=== PATIENT | male | born 1980 | race African-American/Black ===

== ENCOUNTER 2021-10-16 18:12 | Inpatient (IN) | payer MEDICAID ==
[~2021-10-16] VITALS: Ht 175.3 cm; Wt 70.3 kg
--- NOTE | 2021-10-16 19:03 | NUR ---
PT [id number] FR THE STREETS C/O BODY ACHE, FEVER N/V/D X 2 DAYS. AFEBRILE POWER LINE INSTALLER AND REPAIRER. PT IS AAOX4, NOT IN RESPIRATORY DISTRESS, V/S STABLE, KEPT RESTED AND COMFORTABLE. WILL CONTINUE TO MONITOR.
[2021-10-16] MEDS ORDERED: ONDANSETRON HCL/PF 4 MG/2 ML VIAL IVP ONE (19:30)
[2021-10-16] MEDS ORDERED: IV NS 0.9% 1,000 ML BAG IV ONE (19:30)
[2021-10-16] MEDS ORDERED: ACETAMINOPHEN ES 500 MG TABLET PO ONE (19:30)
--- NOTE | 2021-10-16 19:30 | NUR ---
IV LINE ESTABLISHED AT LAC 20G, BLOOD DRAWN AND SENT TO LAB
[2021-10-16] MEDS ORDERED: ONDANSETRON HCL/PF 4 MG/2 ML VIAL ONE (19:34)
[2021-10-16] MEDS ORDERED: ACETAMINOPHEN ES 500 MG TABLET ONE (19:35)
--- NOTE | 2021-10-16 19:50 | NUR ---
INFLUENZA, COVID ANTIGEN AND COVID PCR SWAB COLLECTED, SENT TO LAB
--- NOTE | 2021-10-16 19:54 | NUR ---
RAD AT BEDSIDE
[2021-10-16 20:17] LABS: BASOPHILS # (AUTO) 0.1 K/uL (0.0-0.2); BASOPHILS % (AUTO) 1.2 % (0.0-2.0); EOSINOPHILS % (AUTO) 3.3 % (0.0-6.0); HEMATOCRIT 32 % (39-51); LYMPHOCYTES # (AUTO) 2.3 K/uL (0.8-4.8); LYMPHOCYTES % (AUTO) 37.5 % (20.0-44.0); MEAN CORPUSCULAR HGB CONC 32 g/dl (31.0-36.0); MEAN CORPUSCULAR VOLUME 85 fL (80-96); MONOCYTES # (AUTO) 0.8 K/uL (0.1-1.30); MONOCYTES % (AUTO) 13.5 % (2.0-12.0); NEUTROPHILS # (AUTO) 2.7 K/uL (1.8-8.9); NEUTROPHILS % (AUTO) 44.5 % (43.0-81.0); PLATELET COUNT (AUTO) 477 K/uL (150-450); RED BLOOD CELL COUNT(AUTO) 3.75 MIL/uL (4.5-6.0)
[2021-10-16 20:18] LABS: ALBUMIN 2.5 g/dL (3.4-5.0); BILIRUBIN,DIRECT 0.1 mg/dL (0.0-0.2); BILIRUBIN,TOTAL 0.4 mg/dL (0.2-1.0); CALCIUM, SERUM 8.9 mg/dL (8.5-10.1); CREATININE 0.9 mg/dL (0.6-1.3); POTASSIUM 3.9 mmol/L (3.5-5.1); TOTAL PROTEIN, SERUM 10.3 g/dL (6.4-8.2)
--- NOTE | 2021-10-16 20:51 | NUR ---
PATIENT TAKEN TO RADIOLOGY FOR CT OF ABD PELVIS
[2021-10-16] MEDS ORDERED: PIPERACILLIN /TAZOBACTAM 3.375 G in IV D5W 50 ML IV ONE (22:30)
[2021-10-16] MEDS ORDERED: PIPERACILLIN /TAZOBACTAM 3.375 G VIAL IV ONE (22:34)
--- NOTE | 2021-10-16 22:35 | NUR ---
CEMENT CONVEYOR OPERATOR EQUIPMENT VALIDATION SPECIALIST PAGED.
[2021-10-16] MEDS ORDERED: LIDOCAINE VISCOUS 2% UD 15 ML UDC ONE (22:49)
--- NOTE | 2021-10-16 22:59 | NUR ---
PATIENT REFUSED NG TUBE INSERTION. DR HERNANDEZ WAS NOTIFIED, HE ACKNOWLEDGED AND STATED IT'S OK.
--- NOTE | 2021-10-16 23:24 | NUR ---
DR. ZAYAS ON THE PHONE WITH YADIRA WILSON
--- NOTE | 2021-10-16 23:26 | NUR ---
CALLED NURSING SUP FOR ROOM
--- NOTE | 2021-10-16 23:27 | NUR ---
CALLED [facility], PAGED GT LIVINGSTON
[2021-10-16] MEDS ORDERED: VANCOMYCIN 1 GM in IV D5W 250 ML IV ONE (23:30)
--- NOTE | 2021-10-16 23:33 | NUR ---
MRSA SWAB DONE, SENT TO LAB
--- NOTE | 2021-10-16 23:33 | NUR ---
PATIENT'S BELONGINGS LIST DONE.
[2021-10-17] MEDS ORDERED: VANCOMYCIN 1 GM VIAL ONE (00:09)
--- NOTE | 2021-10-17 00:22 | NUR ---
CASSY OF LAB NOTIFIED OF ORDER FOR BLOOD CULTURE.
--- NOTE | 2021-10-17 01:30 | NUR ---
REPORT GIVEN TO REJI FERRARO FOR CONTINUATION OF CARE
[2021-10-17] MEDS ORDERED: Z GUARD REMEDY 2 OZ OINT TP PRN (02:30)
[2021-10-17] MEDS ORDERED: ACETAMINOPHEN 325 MG TABLET PO PRN (02:30)
[2021-10-17] MEDS ORDERED: ONDANSETRON HCL/PF 4 MG/2 ML VIAL IVP PRN (02:30)
--- NOTE | 2021-10-17 02:30 | NUR ---
PT TO RADIOLOGY FOR CT
[2021-10-17] MEDS ORDERED: IOHEXOL-300 100 ML VIAL IV ONE (02:32)
[2021-10-17] MEDS ORDERED: IV NS 0.9% 250 ML IV ONE (02:32)
--- NOTE | 2021-10-17 02:51 | NUR ---
PT TRANSFERRED TO TELE 102 VIA ACLS PROTOCOL.
[2021-10-17] MEDS: ENOXAPARIN SODIUM 40 MG/0.4 ML DISP.SYRIN SQ SCH ×3 (03:00→21:00)
--- NOTE | 2021-10-17 03:00 | NUR ---
MINING TECHNICIANAUXILIARY OPERATOR NOTE PT RECEIVED AWAKE, ALERT/ORIENTED X 3, PT ABLE TO MAKE NEEDS KNOWN. PT STABLE ON RA, NO S/S OF DISTRESS OR SOB NOTED, BREATHING EVEN AND UNLABORED. VITAL SIGNS WNL. IV ACCESS ON LEFT AC #20G INTACT AND FLUSHING WELL. PT ON EXTERNAL CLINICAL EDUCATION ASSISTANT READING SINUS RHYTHM, HR: 78. PATIENT'S SKIN INTACT OTHER THAN MULTIPLE OLD SCARS ON CHEST, ABDOMEN, BACK AND ARMS. PT POOR HISTORIAN, DENIES MEDICAL HISTORY OTHER THAN HIV POSITIVE AND LUNG SURGERY BUT UNABLE TO EXPLAIN WHAT TYPE OR REASON FOR IT. PT REFUSES FLU AND COVID VACCINE. PT STATES HE IS NOT ALLERGIC TO MEDICATION AND DOES NOT TAKE ANY MEDICATION. PT IS HOMELESS. PATIENT BELONGINGS CHARTED. DEMONSTRATED HOW TO USE CALL LIGHT AND REMOTE, EXPLAINED TO PATIENT TO CALL BEFORE GETTING OUT OF BED TO USE BATHROOM. EXPLAINED TO PATIENT THAT HE IS NPO, VERBALIZED UNDERSTANDING. PER ER NURSE, PT REFUSED NG TUBE PLACEMENT, MD AWARE. SAFETY MEASURES IN PLACE: CALL LIGHT WITHIN REACH, SIDE RAILS UP X 2, BED LOCKED IN LOW POSITION, BED ALARM ON. WILL CONTINUE TO MONITOR PATIENT
--- NOTE | 2021-10-17 03:30 | NUR ---
GANG BOSS NOTE FAXED ORDER FOR FLUCONAZOLE 100 MG IN NS, CEFEPIME 2 GM, AND IV D5/0.45% NS WITH POTASSIUM CHLORIDE TO NURSING NURSERY TECHNICIAN
[2021-10-17] MEDS: AZITHROMYCIN 250 MG TABLET PO SCH ×2 (03:31→20:42)
[2021-10-17] MEDS: MORPHINE SULFATE INJ 2 MG/ML DISP.SYRIN IV PRN ×4 (03:32→20:46)
--- NOTE | 2021-10-17 03:44 | NUR ---
RETORT OR CONDENSER PRESS OPERATOR NOTE HELD LOVENOX [address] GT LIVINGSTON FOR POSSIBLE US GUIDED THORACENTESIS
[2021-10-17 04:00] VITALS: BP 120/83
[2021-10-17 04:06] LABS: THYROID STIMULATING HORMONE 1.048 uIU/mL (0.358-3.74)
[2021-10-17] MEDS ORDERED: CEFEPIME 2 GM in IV D5W 100 ML IV SCH (05:00)
--- NOTE | 2021-10-17 05:13 | NUR ---
REGIONAL CRA NOTE MEDICATIONS STILL NOT AVAILABLE. CALLED NURSING EMBEDDED SOFTWARE DEVELOPER TO FOLLOW UP ON MEDICATION ORDERS I FAXED, STATED SHE WILL COME TO THE UNIT SOON
[2021-10-17] MEDS ORDERED: CEFEPIME 1 GM VIAL ONE (05:37)
[2021-10-17] MEDS ORDERED: IV PREMIX D5 1/2NS + KCL 1,000 ML IV ONE (05:38)
[2021-10-17] MEDS: Potassium Chloride 20 MEQ in IV D5/0.45 NACL 1,000 ML IV PRN (06:15)
--- NOTE | 2021-10-17 06:27 | NUR ---
FOREIGN EXCHANGE POSITION CLERK NOTE PER NURSING NUCLEAR OPERATOR, DIFLUCAN 100 MG IV NOT AVAILABLE, THEREFORE COULD NOT BE GIVEN. WILL CALL PHARMACY WHEN OPEN
--- NOTE | 2021-10-17 07:26 | NUR ---
FIXED INCOME DIRECTOR CLOSING NOTE PATIENT AWAKE IN BED, ALERT/ORIENTED X 3, PT ABLE TO MAKE NEEDS KNOWN. PT STABLE ON RA, NO S/S OF DISTRESS OR SOB NOTED, BREATHING EVEN AND UNLABORED. PATIENT ON EXTERNAL RETAIL SHIFT LEADER READING SINUS RHYTHM. LEFT AC #20G IV ACCESS RUNNING D51/2 NS WITH POTASSIUM CHLORIDE 20 MEQ @ 100 ML/HR. CALLED PHARMACY REGARDING DIFLUCAN IV AND THEY STATED THEY WOULD BRING IT UP, ENDORSED TO DAY SHIFT NURSE. MEDICATIONS GIVEN ORDERED, PT NEEDS MET THROUGHOUT SHIFT. SAFETY MEASURES IN PLACE: CALL LIGHT WITHIN REACH, SIDE RAILS UP X 2, BED LOCKED IN LOW POSITION. ENDORSED TO DAY SHIFT NURSE FOR CONTINUITY OF CARE
[2021-10-17 08:00] VITALS: BP 130/74
--- NOTE | 2021-10-17 08:00 | NUR ---
REPLENISHMENT MERCHANDISING ASSOCIATE OPENING NOTE PATIENT IS RESTING IN BED BUT DOES RESPOND TO NAME A/OX3. PATIENT IS ON ROOM AIR WITH O2 SAT IN THE HIGH 90S. HAS INTACT IV ACCES IN THE LT AC 20G RUNNING D2 1/2 NS. PATIENT IS NPO ICE CHIPS OKAY. PATIENT DOES NOT COMPLAINT OF PAIN OR SOB AT THIS TIME. SAFETY PROTOCOL IN PLACE BED IN THE LOWEST POSITION AND LOCKED, CALL LIGHT WITHIN REACH.
[2021-10-17] MEDS: VANCOMYCIN 1 GM in IV D5W 250ml IV SCH ×2 (08:14→16:06)
[2021-10-17] MEDS: PANTOPRAZOLE 40 MG VIAL IV SCH (08:14)
--- NOTE | 2021-10-17 10:15 | NUR ---
AT 10:15 PER RN, JLUIS ROSS REFUSED THE PROCEDURE AND TO SIGN THE CONSENT. RN WILL INFORM THE ORDERING MD.
--- NOTE | 2021-10-17 10:18 | NUR ---
REGIONAL TRAINING MANAGER NOTE PATIENT IS REFUSING U/S THORACENTESIS, U/S AWARE. WAS INFORMED THAT PATIENT CAN CHANGE HIS MIND AND GET PROCEDURE DONE TOMORROW IF HE WISHES, WILL NOTIFY PATIENT AND PROVIDER.
[2021-10-17 12:00] VITALS: BP 119/75
[2021-10-17] MEDS: CEFEPIME 2 GM in IV D5W 100 ML IV SCH ×2 (12:37→20:43)
[2021-10-17 16:00] VITALS: BP 123/75
--- NOTE | 2021-10-17 18:33 | NUR ---
GLASS BENDER CLOSING NOTE PATIENT AWAKE IN BED, ALERT/ORIENTED X 4, PT ABLE TO MAKE NEEDS KNOWN. NO S/S OF DISTRESS OR SOB NOTED, BREATHING EVEN AND UNLABORED. PATIENT ON EXTERNAL SUBSTANCE ABUSE NURSE READING SINUS RHYTHM. RIGHT AC #20G IV INTACT. PATIENT REFUSED THORACENTESIS TODAY. PATIENT WAS IN A NPO DIET BUT SWITCH TO A REGULAR DIET. PATIENT IS AWARE WE NEED A STOOL SAMPLE FOR CX AND SPECIMEN CUP IS PLACED IN BATHROOM FOR COLLECTION. MEDICATIONS GIVEN ORDERED, PT NEEDS MET THROUGHOUT SHIFT. SAFETY MEASURES IN PLACE: CALL LIGHT WITHIN REACH, SIDE RAILS UP X 2, BED LOCKED IN LOW POSITION. ENDORSED TO TRIAL EXAMINER NURSE FOR ERIC
--- NOTE | 2021-10-17 19:40 | NUR ---
TELE OPENING NOTE RECEIVED PATIENT RESTING IN BED, ALERT/ORIENTED X 4, PT ABLE TO MAKE NEEDS KNOWN. NO S/S OF DISTRESS OR SOB NOTED, BREATHING EVEN AND UNLABORED. PATIENT ON EXTERNAL SHEET METAL WORKER READING SINUS RHYTHM. RIGHT AC #20G. IV INTACT. PATIENT ON ROOM AIR, SATURATING 99%. ALL SAFETY PRECAUTIONS TAKEN, BED IN LOW POSITION, CALL LIGHT WITHIN REACH, SIDE RAILS UP X2.
[2021-10-17 20:00] VITALS: BP 115/63
[2021-10-17] MEDS: FLUCONAZOLE IN NS 100 MG in PREMIX 1 EA IV SCH (21:00)
[2021-10-18] MEDS: VANCOMYCIN 1 GM in IV D5W 250ml IV SCH ×3 (01:05→15:22)
[2021-10-18] MEDS: Potassium Chloride 20 MEQ in IV D5/0.45 NACL 1,000 ML IV PRN (01:06)
[2021-10-18 01:46] VITALS: BP 115/63
[2021-10-18] MEDS: FLUCONAZOLE IN NS 100 MG in PREMIX 1 EA IV SCH (02:29)
[2021-10-18] MEDS: MORPHINE SULFATE INJ 2 MG/ML DISP.SYRIN IV PRN ×4 (02:29→18:47)
[2021-10-18 04:00] VITALS: BP 120/79
[2021-10-18 06:06] LABS: *BASOS 0 % (Not Estab.); *EOS 5 % (Not Estab.); *EOS, ABSOLUTE 0.3 x10E3/uL (0.0-0.4); *HGB 9.6 g/dL (13.0-17.7); *IMMATURE GRANULOCYTES 0 % (Not Estab.); *LYMPHOCYTES 49 % (Not Estab.); *LYMPHS, ABSOLUTE 2.3 x10E3/uL (0.7-3.1); *MCH 27.4 pg (26.6-33.0); *MCV 86 fL (79-97); *MONOCYTES 9 % (Not Estab.); *MONOS, ABSOLUTE 0.4 x10E3/uL (0.1-0.9); *NEUTROPHILS 37 % (Not Estab.); *NEUTROPHILS, ABSOLUTE 1.8 x10E3/uL (1.4-7.0); *PLT 471 x10E3/uL (150-450); *RDW 19.3 % (11.6-15.4)
[2021-10-18] MEDS: CEFEPIME 2 GM in IV D5W 100 ML IV SCH ×3 (06:34→21:22)
[2021-10-18 07:23] LABS: BASOPHILS # (AUTO) 0.1 K/uL (0.0-0.2); BASOPHILS % (AUTO) 1.5 % (0.0-2.0); EOSINOPHILS % (AUTO) 9.2 % (0.0-6.0); HEMATOCRIT 28 % (39-51); HEMOGLOBIN 9.3 g/dL (13.5-17.5); LYMPHOCYTES # (AUTO) 1.7 K/uL (0.8-4.8); LYMPHOCYTES % (AUTO) 44.7 % (20.0-44.0); MEAN CORPUSCULAR HGB CONC 33 g/dl (31.0-36.0); MEAN CORPUSCULAR VOLUME 84 fL (80-96); MONOCYTES # (AUTO) 0.4 K/uL (0.1-1.30); MONOCYTES % (AUTO) 10.8 % (2.0-12.0); NEUTROPHILS # (AUTO) 1.3 K/uL (1.8-8.9); NEUTROPHILS % (AUTO) 33.8 % (43.0-81.0); PLATELET COUNT (AUTO) 360 K/uL (150-450); RED BLOOD CELL COUNT(AUTO) 3.34 MIL/uL (4.5-6.0); WHITE BLOOD COUNT (AUTO) 3.8 K/uL (4.3-11.0)
--- NOTE | 2021-10-18 07:38 | NUR ---
PULP OPERATOR CLOSING NOTE PATIENT IS RESTING IN BED BED, ALERT/ORIENTED X 4, NO S/S OF DISTRESS OR SOB NOTED, BREATHING EVEN AND UNLABORED. PATIENT ON ROOM AIR, SATURATING 99%. RIGHT AC IV ACCESS INTACT AND PATENT. URINE SPECIMEN COLLECTED AND PLACED IN FRIDGE, DIRECTIONS ENDORSED TO ONCOMING MORNING NURSE. PATIENT REFUSED LOVENOX, BECAUSE "IT HURTS TOO MUCH." MEDICATIONS GIVEN ORDERED, PT NEEDS MET THROUGHOUT SHIFT. SAFETY MEASURES IN PLACE: CALL LIGHT WITHIN REACH, SIDE RAILS UP X 2, BED LOCKED IN LOW POSITION. PLAN OF CARE ENDORSED TO MORNING SHIFT
[2021-10-18 07:46] LABS: ALBUMIN 2.1 g/dL (3.4-5.0); BILIRUBIN,TOTAL 0.5 mg/dL (0.2-1.0); CALCIUM, SERUM 7.8 mg/dL (8.5-10.1); CREATININE 0.7 mg/dL (0.6-1.3); MAGNESIUM 1.3 mg/dL (1.8-2.4); POTASSIUM 3.4 mmol/L (3.5-5.1); TOTAL PROTEIN, SERUM 8.7 g/dL (6.4-8.2)
--- NOTE | 2021-10-18 07:51 | NUR ---
RN OPENING NOTE PATIENT RECEIVED IN BED, RESTING. PATIENT ON ROOM AIR WITH NO SIGNS OF LABORED BREATHING AT THIS TIME. RIGHT AC 20G IV IN PLACE, PATENT WITH NO SIGNS OF LABORED BREATHING AT THIS TIME. NO SIGNS OF DISTRESS NOTED AT THIS TIME. BED LOCKED AND IN LOWEST POSITION, CALL LIGHT WITHIN REACH, 3 SIDE RAILS UP. WILL CONTINUE TO MONITOR.
[2021-10-18 08:00] VITALS: BP 122/79
[2021-10-18] MEDS: PANTOPRAZOLE 40 MG VIAL IV SCH (08:18)
[2021-10-18 09:07] LABS: *% CD 4 POS. LYMPH 7.3 % (30.8-58.5); *% CD 8 POS. LYMPH 72.6 % (12.0-35.5); *ABSOLUTE CD 4 HELPER 168 /uL (359-1519); *ABSOLUTE CD 8 SUPPRESSOR 1670 /uL (109-897)
[2021-10-18] MEDS: Magnesium 1GM/D5W 100ML PREMIX 100 ML IV SCH ×4 (09:58→13:34)
[2021-10-18 10:12] LABS: EOSINOPHILS % (MANUAL) 6 % (0-4); LYMPHOCYTES % (MANUAL) 47 % (16-48); MONOCYTES % (MANUAL) 10 % (0-11.0); NEUTROPHILS % (MANUAL) 37 (42-76)
[2021-10-18] MEDS ORDERED: POTASSIUM CHLORIDE 20 MEQ TAB.PRT.SR PO ONE (11:30)
[2021-10-18 12:00] VITALS: BP 117/80
[2021-10-18 15:52] LABS: BILIRUBIN,URINE NEGATIVE (NEGATIVE); COLOR,URINE YELLOW (YELLOW); LEUKOCYTE ESTERASE ,URINE NEGATIVE (NEGATIVE); NITRITE, URINE NEGATIVE (NEGATIVE); PROTEIN,URINE NEGATIVE (NEGATIVE); UGLUCOSE NEGATIVE (NEGATIVE); UROBILINOGEN,URINE 0.2 EU/dL (0.2)
[2021-10-18 16:00] VITALS: BP 125/69
--- NOTE | 2021-10-18 18:52 | NUR ---
RN CLOSING NOTE PATIENT REMAINS IN BED, AWAKE, A&OX4. PATIENT ON ROOM AIR WITH NO SIGNS OF LABORED BREATHING AT THIS TIME. RIGHT AC 20G IV IN PLACE, PATENT WITH NO SIGNS OF INFILTRATION AT THIS TIME. ALL NEEDS ATTENDED DURING SHIFT. NO SIGNS OF DISTRESS NOTED AT THIS TIME. BED LOCKED AND IN LOWEST POSITION, CALL LIGHT WITHIN REACH, 2 SIDE RAILS UP. WILL ENDORSE TO BOATSWAINS MATE NURSE.
[2021-10-18 20:00] VITALS: BP 123/81
--- NOTE | 2021-10-18 20:00 | NUR ---
SANDWICH WRAPPER NOTE PT IN BED AWAKE. NO DISTRESS OR DISCOMFORT NOTED. DENIES PAIN AT THIS TIME. IVF D5 1/2 NS WITH 20 MEQ 100 ML/HR , NO S/S OF INFILTRATION NOTED. ON TELE SR. VSS. CONTINUE TO MONITOR HIM.
[2021-10-18] MEDS ORDERED: METRONIDAZOLE 500MG/ NS 100ML 500 MG in PREMIX 1 EA IV SCH (21:00)
[2021-10-18] MEDS: ENOXAPARIN SODIUM 40 MG/0.4 ML DISP.SYRIN SQ SCH (21:00)
[2021-10-18] MEDS: METRONIDAZOLE 500 MG TABLET PO SCH (21:22)
[2021-10-19] VITALS: BP 117/75
[2021-10-19] MEDS: VANCOMYCIN 1 GM in IV D5W 250ml IV SCH ×3 (00:19→16:19)
[2021-10-19] MEDS: MORPHINE SULFATE INJ 2 MG/ML DISP.SYRIN IV PRN ×4 (00:20→18:18)
--- NOTE | 2021-10-19 02:20 | NUR ---
CONSULTING ANALYST NOTE PT REMOVED HIS TELE MONITOR LEADS. ALSO PULLED THE IV LINE. STATES ' ACCIDENTLY CAME OUT." NO BLEEDING NOTED. WILL REINSERT THE NEW IV LINE.
[2021-10-19 04:00] VITALS: BP 120/76
[2021-10-19] MEDS: CEFEPIME 2 GM in IV D5W 100 ML IV SCH ×3 (04:22→21:06)
[2021-10-19] MEDS: METRONIDAZOLE 500 MG TABLET PO SCH ×3 (04:23→21:06)
[2021-10-19 06:19] LABS: EOSINOPHILS % (AUTO) 8.6 % (0.0-6.0); HEMATOCRIT 28 % (39-51); HEMOGLOBIN 9.2 g/dL (13.5-17.5); LYMPHOCYTES # (AUTO) 1.8 K/uL (0.8-4.8); LYMPHOCYTES % (AUTO) 46.6 % (20.0-44.0); MEAN CORPUSCULAR HGB CONC 33 g/dl (31.0-36.0); MEAN CORPUSCULAR VOLUME 83 fL (80-96); MONOCYTES # (AUTO) 0.5 K/uL (0.1-1.30); MONOCYTES % (AUTO) 13.4 % (2.0-12.0); NEUTROPHILS # (AUTO) 1.2 K/uL (1.8-8.9); NEUTROPHILS % (AUTO) 30.4 % (43.0-81.0); PLATELET COUNT (AUTO) 350 K/uL (150-450); RED BLOOD CELL COUNT(AUTO) 3.39 MIL/uL (4.5-6.0); WHITE BLOOD COUNT (AUTO) 3.9 K/uL (4.3-11.0)
[2021-10-19 06:55] LABS: CALCIUM, SERUM 8.1 mg/dL (8.5-10.1); CREATININE 0.7 mg/dL (0.6-1.3); MAGNESIUM 1.8 mg/dL (1.8-2.4); PHOSPHORUS 4.1 mg/dL (2.5-4.9)
--- NOTE | 2021-10-19 07:20 | NUR ---
RN NOTE REPORT REC'D AT BEDSIDE. PT IS AWAKE, ALERT, OX4. NO SOB. ON RA. DENIES ANY NEED AT THIS TIME. PT IS AMBULATORY WTH STEADY GAIT. IVF INFUSING TO LFA WITHOUT DIFFICULTY. SAFETY MEASURES OBSERVED. WILL CONTINUE TO MONITOR.
--- NOTE | 2021-10-19 07:49 | NUR ---
RN NOTE PER CORE WORKER RN, PATIENT REFUSED THORACENTESIS. PATIENT REFUSING TELE MONITOR MD MADE AWARE.
--- NOTE | 2021-10-19 07:52 | NUR ---
RN NOTE PER GUILHERME ARREOLA NOTE. OK TO DOWNGRADE TO MED SURGERY. ORDERS NOTED AND CARRIED OUT.
[2021-10-19 08:00] VITALS: BP 117/70
[2021-10-19] MEDS: SULFAMETH/TRIMETH 800/160 MG 1 UDTAB TABLET PO SCH (08:26)
[2021-10-19] MEDS: PANTOPRAZOLE 40 MG VIAL IV SCH (08:26)
--- NOTE | 2021-10-19 08:45 | NUR ---
RN NOTE MEDICATED WITH MORPHINE SULFATE 4 MG IVP FOR PAIN ORDERED. NO SOB.
--- NOTE | 2021-10-19 09:15 | NUR ---
RN NOTE PT VERBALIZED PAIN 4/10 AFTER MORPHINE GIVEN.ACCEPTABLE RELIEF.
[2021-10-19 12:00] VITALS: BP 121/71
--- NOTE | 2021-10-19 13:01 | NUR ---
SS consult requested for homelessness. SW will follow up at a later time.
[2021-10-19] MEDS: Potassium Chloride 20 MEQ in IV D5/0.45 NACL 1,000 ML IV PRN (13:41)
--- NOTE | 2021-10-19 14:12 | NUR ---
RN NOTE PATIENT SIGNED AUTHORIZATION FOR DISCLOSURE OF HEALTH INFORMATION AND FAXED TO [facility], FAX RECEIVED BY [facility], AWAITING MEDICAL RECORDS. Addendum: 10/19/21 at 1538 by SYLWIA MILLS RN RN NOTE PATIENT SIGNED AUTHORIZATION FOR DISCLOSURE OF HEALTH INFORMATION AND FAXED TO [facility], FAX RECEIVED BY [facility], AWAITING MEDICAL RECORDS. FAX NUMBER [phone]
[2021-10-19 16:00] VITALS: BP 117/77
--- NOTE | 2021-10-19 18:45 | NUR ---
RN NOTE PTS CONDITION UNCHANGED. MEDICATED FOR PAIN ORDERED. NO SOB. ON RA. SR ON THE MONITOR. IVF IFUSING WELL TO LFA. NEEDS ATTENDED. SAFETY MEASURES OBSERVED. WILL CARE TO NOC RN.
--- NOTE | 2021-10-19 19:30 | NUR ---
MS RN NOTE PT IN BED LAYING DOWN. AWAKE. A/O X 4 NO SOB, NO DISTRESS OR DISCOMFORT NOTED. DENIES PAIN AT THIS TIME. IVF D5 1/2 NS WITH 20 MEQ KCL INFUSING WELL, NO S/S OF INFILTRATION NOTED AT LFA #20G IV LINE. ALL NEEDS ATTENDED. SIDE RAILS UP X 2 AND CALL LIGHT WITHIN REACH. VSS. CONTINUE TO MONITOR HIM.
[2021-10-19 20:00] VITALS: BP 123/82
[2021-10-19] MEDS: ENOXAPARIN SODIUM 40 MG/0.4 ML DISP.SYRIN SQ SCH (21:00)
[2021-10-20] MEDS: VANCOMYCIN 1 GM in IV D5W 250ml IV SCH ×2 (01:02→08:10)
[2021-10-20] MEDS: MORPHINE SULFATE INJ 2 MG/ML DISP.SYRIN IV PRN ×2 (01:05→08:13)
[2021-10-20 04:00] VITALS: BP 120/68
[2021-10-20] MEDS: CEFEPIME 2 GM in IV D5W 100 ML IV SCH (04:35)
[2021-10-20] MEDS: METRONIDAZOLE 500 MG TABLET PO SCH ×2 (04:35→12:34)
[2021-10-20 06:27] LABS: BASOPHILS # (AUTO) 0.1 K/uL (0.0-0.2); BASOPHILS % (AUTO) 1.4 % (0.0-2.0); EOSINOPHILS % (AUTO) 8.9 % (0.0-6.0); HEMATOCRIT 29 % (39-51); HEMOGLOBIN 9.6 g/dL (13.5-17.5); LYMPHOCYTES # (AUTO) 1.5 K/uL (0.8-4.8); LYMPHOCYTES % (AUTO) 42.3 % (20.0-44.0); MEAN CORPUSCULAR HGB CONC 33 g/dl (31.0-36.0); MEAN CORPUSCULAR VOLUME 83 fL (80-96); MONOCYTES # (AUTO) 0.5 K/uL (0.1-1.30); MONOCYTES % (AUTO) 13.1 % (2.0-12.0); NEUTROPHILS # (AUTO) 1.2 K/uL (1.8-8.9); NEUTROPHILS % (AUTO) 34.3 % (43.0-81.0); PLATELET COUNT (AUTO) 350 K/uL (150-450); WHITE BLOOD COUNT (AUTO) 3.6 K/uL (4.3-11.0)
--- NOTE | 2021-10-20 07:14 | NUR ---
RN NOTE REPORT REC'D AT BEDSIDE. PT AWAKE, A/OX4. NO SOB. ON RA. IVF INFUSING AT 100 CC/HR LFA. SAFETY MEASURES OBSERVED. CALL LIGHT WITHIN REACH. WILL CONTINUE TO MONITOR.
[2021-10-20 07:34] LABS: ALBUMIN 2.3 g/dL (3.4-5.0); BILIRUBIN,TOTAL 0.4 mg/dL (0.2-1.0); CALCIUM, SERUM 8.1 mg/dL (8.5-10.1); CREATININE 0.7 mg/dL (0.6-1.3); MAGNESIUM 1.5 mg/dL (1.8-2.4); POTASSIUM 4.3 mmol/L (3.5-5.1); TOTAL PROTEIN, SERUM 8.6 g/dL (6.4-8.2)
[2021-10-20 08:00] VITALS: BP 133/91
[2021-10-20] MEDS: SULFAMETH/TRIMETH 800/160 MG 1 UDTAB TABLET PO SCH (08:10)
--- NOTE | 2021-10-20 08:28 | NUR ---
RN NOTE DR. BESS CAME TO SEE PT. ADVISED TO CALL HIM WHEN MEDICAL RECORDS FROM [facility] IS AVAILABLE. WILL FOLLOW UP.
[2021-10-20] MEDS ORDERED: PANTOPRAZOLE 40 MG TABLET.DR PO SCH (09:00)
--- NOTE | 2021-10-20 09:32 | NUR ---
RN NOTE ROUNDS MADE. IV TO RH FOUND TO BE OUT. PULLED OUT BY ACCIDENT PER PT. NEW IV PLACED ON LFA X1 ATTEMPT WITH GOOD BLOOD RETURN. IVF REINFUSED ORDERED.
[2021-10-20] MEDS: Magnesium 1GM/D5W 100ML PREMIX 100 ML IV SCH ×2 (11:04→12:35)
--- NOTE | 2021-10-20 11:15 | NUR ---
RN NOTE PER DR. FLORES PATIENT WILL BE DISCHARGED TODAY REGARDLESS IF THE MEDICAL RECORDS FROM [facility] IS AVAILABLE. VERIFIED IV LINE WILL BE LEFT IN PLACE FOR IV ANTIBIOTICS X1 WEEK. CM WILL PROCESS THE ABOVE ANTIBIOTICS. PATRICK NOEL AT BEDSIDE ASSESSING PATIENT NEEDS FOR DISCHARGE. PATIENT MADE AWARE OF THE PLAN AND HAPPY ABOUT IT.
--- NOTE | 2021-10-20 11:21 | NUR ---
Pt. signed homeless waiver and its placed in pt.'s chart.
--- NOTE | 2021-10-20 11:34 | NUR ---
"SS Consult: SS consult for homeless. Pt. Is a 41-year-old male. Pt. demonstrates adequate insight to the reason for hospitalization. Per pt., he was brought to hospital by ambulance due to having pain. Pt. was oriented x4, alert, and cooperative. During interview, pt. was capable of following directions, made appropriate eye-contact, and appeared well-groomed/unkept. Pt.s speech was at a normal rate. Pt.s mood was elevated. SW explored pt.s hx of mental health and substance abuse. Pt. reported no hx of mental health, suicidal or homicidal. Pt. denies auditory hallucinations, visual hallucinations, paranoia, or delusions. Per pt., he uses methamphetamine and does not plan to stop. Pt. stated that he makes him feel good. SW explored pt.s living situation. Per pt., he has been homeless for 5 years. Pt. stated that he stays at the curb with a blanket. Pt. never used a senior care. SW suggest going to a winter senior care, pt. agreed. Per pt., he reports having adequate support from his aunt, but he cannot stay with her. Plan: SW provided available resources and pt. accepted. Pt. signed homeless waiver and SW placed it in pt.s chart. Once discharge, per pt., he will return to streets. Resources Provided: Winter Shelters: SPA 2 | [facility] Address: Confidential (call for location ) Population Served: Coed # of Beds: 57 SPA 4 | [facility] Provider: Home at Last Address: [address] [place] [address] # of Beds: 49 Population Served: Coed SPA 6 | [facility] Provider: Home at Last Address: [address] [address] # of Beds: 49 Population Served: Steved [facility] Home Provider: Anoop Vergara SCTea Address: [address] [place] [address] # of Beds: 20 Population Served: Women [facility] Facility Provider: Home at Last Address: [address] [place] [address] [facility] [address] # of Beds: 30 Population Served: [facility] SPA 8 | [facility] Provider: [facility] Address: [address] [facility] [address] # of Beds: 65 Population Served: Coed Year-round shelters: [place] [address] [place] [address] ; [facility] [place] [address] [facility] [place] [address]; [place] [facility] S[address] [facility] [address] Winter Shelters: Lucia Shepard Provider: Anjelica [place] Address: [address], [address] # of Beds: 47 Population Served: Coed [facility] 6 | [facility] Darcy Mcguire Sarah Ann Provider: Home at Last Address: [address] [place] [address], [address] # of Beds: 66 Population Served: Coed [place] Sarah Ann Provider: [facility] Serve Address: [address] [facility], [address] # of Beds: 56 Population Served: [facility] Je[place]anny [place] Provider: /[facility] Address: [address] [facility], [address] # of Beds: 49 Population Served: Coed [facility] 8 | [facility] Provider: First to Serve Address: [address] [facility], [address] # of Beds: 37 Population Served: [facility] Hygiene: [facility]: [address] [address] ; [place] [facility] [address] [facility] ; [facility] [address] . Food Resources: [place] [facility] at [facility]- [address] [place]; Meet Each Need with Dignity ([facility]) [address] Jasvir; [facility] [address] [facility]; [facility] [address] [facility]. Mental Health resources provided: [facility] [address] [place] [address] ; [facility] [address] [facility] [address], [place], [place] [id number] ; [facility] [address] [facility] [place], [place] [id number] ; [facility] [place], [place] [address] Healthcare Clinics: [facility] [address] [facility], [address] [place]. [place] ; [facility] [address] [facility] [address] [place] [address]; [facility] [place] [address] [place] [address] [phone]) [phone] Counseling--[facility] [address] [facility], [address] [place], [place] [address] (Specializes in in-depth psychotherapy for emotional distress: anxiety, depression, interpersonal conflicts, life transitions, childhood abuse) [facility] [address] [place] [address] (Assist with solving problem marital difficulties, separation & divorce, aging parents, & grief, chronic & terminal illness) [facility] [address] [place] [address] (Deal with loss & grief, anxiety, marital difficulties) Homebound/Mental Health Services [address] [facility], [address] [place], [place] [address] (Provide in-home mental services to people who are incapable of leaving their homes) [facility] Needs of the Elderly Senior Service/Resource Center [address] [place] [address] [facility] [address] [place] [address] PSYCHIATRIC OUTPATIENT SERVICES [facility] Partial Hospitalization and Intensive Outpatient Program (Managed Care and [place] Only)[address] [facility] [phone] [facility] Partial Hospitalization and Outpatient [address] [place], [place] [phone] [facility] [place] [id number] [facility]. [address] [place], [place] [phone] [facility] Partial Hospitalization and Outpatient Jzzkegl[address] [place], [phone] Substance Abuse resources provided included: [facility] Substance Abuse Self-Helpline ([facility]) ; [facility]LP [address] [facility]. [place] [address] ; [facility] [address] [facility] [address] ; [facility] Rehabilitation Program [address] [facility] [address] ; [facility] [address] [facility] [address] ; [facility] Treatment [facility] [address] [facility] [address] ; [facility] [address] [facility] [address] ; [facility] Substance Abuse Helpline([facility] ; [facility] ; [facility]; [facility] [place]; [facility] [place]; [facility] [place]; [facility] [place]; [place]; [facility] [place]; [facility]. [place]; Alcoholics Anonymous -SFV; Jenise ; Marijuana Anonymous -[facility]V; Narcotics Anonymous www.na.org;"
[2021-10-20] MEDS: Potassium Chloride 20 MEQ in IV D5/0.45 NACL 1,000 ML IV PRN (11:49)
[2021-10-20] MEDS ORDERED: LEVOFLOXACIN (250MG) 250 MG TABLET PO SCH (12:00)
[2021-10-20] MEDS ORDERED: Sulfameth/Trimeth 800/160 Mg PO (12:12)
[2021-10-20] MEDS ORDERED: LEVO250T59 PO (12:12)
--- NOTE | 2021-10-20 14:08 | NUR ---
RN NOTE WITH ORDER TO DISCHARGE PATIENT WHO IS HOMELESS. WAS SEEN BY PATRICK EARLIER FOR HOMELESSNESS. PATIENT IS ALERT AND ORIENTED X4. AMBULATORY WITH STEADY GAIT. DISCHARGE INSTRUCTIONS GIVEN TO PATIENT. EMPHASIZED THE IMPORTANCE OF COMPLETING ABX AND FOLLOWING UP WITH THE DOCTOR. PATIENT VERBALIZED UNDERSTANDING. SL TO LFA REMOVED. NO BLEEDING NOTED. PATIENT HAS NO SOB. WALK PATIENT TO THE MAIN LOBBY NO BELONGINGS. PATIENT IS DISCHARGED IN STABLE CONDITION.
[2021-10-20] MEDS ORDERED: FAMO-131 PO (20:44)
== END 2021-10-20 13:00 | disposition home or self-care (01) | DRG 890 ==
LOC: ER 18:14 → TELE1 10-17 00:43 → MEDSG1 10-19 08:26
PROVIDERS: ADMIT Nurse Practitioner Acute Care
DX: J86.9 Pyothorax without fistula (principal); B20 Human immunodeficiency virus [HIV] disease; J94.8 Other specified pleural conditions; E44.0 Moderate protein-calorie malnutrition; J18.9 Pneumonia, unspecified organism; J90 Pleural effusion, not elsewhere classified; J21.9 Acute bronchiolitis, unspecified; Z20.822 Contact with and (suspected) exposure to COVID-19; J98.11 Atelectasis; Z68.22 Body mass index [BMI] 22.0-22.9, adult; E87.6 Hypokalemia; E78.5 Hyperlipidemia, unspecified; D64.9 Anemia, unspecified; D75.839 Thrombocytosis, unspecified; E83.42 Hypomagnesemia; Z53.20 Procedure and treatment not carried out because of patient's decision for unspecified reasons; R22.2 Localized swelling, mass and lump, trunk; Z90.2 Acquired absence of lung [part of]
CPT/HCPCS: 36415; 71045-TC; 71270-TC; 80048-TC; 80053-TC; 80061-TC; 80076-TC; 80202-TC; 83540-TC; 83605-TC; 83735-TC; 84100-TC; 84443-TC; 85025-TC; 85730-TC; 86360; 87040-TC; 87081-TC; 87449; 87899; 93307-TC; 97112-TC; 97116-TC; 97530-TC; A4216; C9113; C9803; G0378; J0692; J1450; J1650; J2270; J2405; J2543; J3370; J3475; J3480; J3490; J7050; J7060; Q9967; U0003

== ENCOUNTER 2021-10-20 18:59 | Emergency (ER) | payer MEDICAID ==
[~2021-10-20] VITALS: Ht 172.7 cm; Wt 59.0 kg
[~2021-10-20 18:59] MED LIST: LEVO250T59 PO; Sulfameth/Trimeth 800/160 Mg PO
--- NOTE | 2021-10-20 19:27 | NUR ---
URINE COLLECTED AND SENT TO LAB
--- NOTE | 2021-10-20 19:54 | NUR ---
BLOOD COLLECTED AND SENT TO LAB
[2021-10-20 20:07] LABS: BASOPHILS # (AUTO) 0.1 K/uL (0.0-0.2); BASOPHILS % (AUTO) 2.1 % (0.0-2.0); HEMATOCRIT 32 % (39-51); HEMOGLOBIN 10.4 g/dL (13.5-17.5); LYMPHOCYTES # (AUTO) 1.7 K/uL (0.8-4.8); LYMPHOCYTES % (AUTO) 36.2 % (20.0-44.0); MEAN CORPUSCULAR HGB CONC 33 g/dl (31.0-36.0); MEAN CORPUSCULAR VOLUME 85 fL (80-96); MONOCYTES # (AUTO) 0.6 K/uL (0.1-1.30); MONOCYTES % (AUTO) 12.5 % (2.0-12.0); NEUTROPHILS # (AUTO) 2.1 K/uL (1.8-8.9); NEUTROPHILS % (AUTO) 44.2 % (43.0-81.0); PLATELET COUNT (AUTO) 372 K/uL (150-450); RED BLOOD CELL COUNT(AUTO) 3.71 MIL/uL (4.5-6.0); WHITE BLOOD COUNT (AUTO) 4.8 K/uL (4.3-11.0)
[2021-10-20 20:15] LABS: BILIRUBIN,URINE NEGATIVE (NEGATIVE); COLOR,URINE YELLOW (YELLOW); LEUKOCYTE ESTERASE ,URINE NEGATIVE (NEGATIVE); NITRITE, URINE NEGATIVE (NEGATIVE); PROTEIN,URINE TRACE mg/dl (NEGATIVE); UGLUCOSE NEGATIVE (NEGATIVE); UROBILINOGEN,URINE 0.2 EU/dL (0.2)
[2021-10-20 20:21] LABS: CALCIUM, SERUM 8.3 mg/dL (8.5-10.1); CARBON DIOXIDE 28 mmol/L (21-32); CHLORIDE 100 mmol/L (98-107); CREATININE 0.8 mg/dL (0.6-1.3); GLUCOSE 100 mg/dL (74-106); POTASSIUM 4.2 mmol/L (3.5-5.1); SODIUM SERUM 136 mmol/L (136-145); UREA NITROGEN, BLOOD 13 mg/dL (7-18)
[2021-10-20 20:26] LABS: BACTERIA,URINE None seen /HPF (None Seen); MUCUS,URINE Few /LPF (None Seen); RBC,URINE 0-2 /HPF (0-2); WBC,URINE 0-2 /HPF (0-3)
[2021-10-20 20:26] LABS: ALANINE AMINOTRANSFERASE 20 U/L (12-78); ALBUMIN 2.5 g/dL (3.4-5.0); ALKALINE PHOSPHATASE 131 U/L (46-116); ASPARTATE AMINOTRANSFERASE 18 U/L (15-37); BILIRUBIN,DIRECT 0.1 mg/dL (0.0-0.2); BILIRUBIN,TOTAL 0.3 mg/dL (0.2-1.0); LIPASE 144 U/L (73-393); TOTAL PROTEIN, SERUM 9.9 g/dL (6.4-8.2)
[2021-10-20] MEDS ORDERED: FAMO-131 PO (20:44)
--- NOTE | 2021-10-20 20:50 | NUR ---
Patient discharged to home in stable condition. Written and verbal after care instructions given. Patient verbalizes understanding of instruction.
[2021-10-20 20:51] VITALS: BP 132/70
== END 2021-10-20 20:51 | disposition home or self-care (01) ==
LOC: ER 19:06
DX: R10.11 Right upper quadrant pain (principal); J94.2 Hemothorax; Z98.890 Other specified postprocedural states; Z59.00 Homelessness unspecified; Z79.899 Other long term (current) drug therapy
CPT/HCPCS: 36415; 71045-TC; 80048-TC; 80076-TC; 81001; 83690-TC; 84484-TC; 85025-TC; 87086-TC

== ENCOUNTER 2022-08-03 20:42 | Emergency (ER) | payer MEDICAID, OTHER ==
[~2022-08-03] VITALS: Ht 172.7 cm; Wt 81.6 kg
[~2022-08-03 20:42] MED LIST changes: +FAMO-131 PO
--- NOTE | 2022-08-03 21:05 | NUR ---
BIBRA [address] C/O FEET, ABD, BACK PAIN "FOR A COUPLE DAYS". AWAKE AND ALERT X4 BREATHING EVEN AND UNLABORED. V/S WNL.
--- NOTE | 2022-08-03 21:06 | NUR ---
PT TAKEN TO CT VIA [facility]
--- NOTE | 2022-08-03 21:06 | NUR ---
PT BEING TRANSPORTED TO CT
--- NOTE | 2022-08-03 21:33 | NUR ---
20G IV ESTABLISHED AT . BLOOD DRAWN AND SENT TO LAB.
[2022-08-03 21:59] LABS: CALCIUM, SERUM 8.1 mg/dL (8.5-10.1); POTASSIUM 4.6 mmol/L (3.5-5.1)
[2022-08-03 22:06] LABS: ALBUMIN 2.4 g/dL (3.4-5.0); BILIRUBIN,DIRECT 0.1 mg/dL (0.0-0.2); BILIRUBIN,TOTAL 0.5 mg/dL (0.2-1.0); TOTAL PROTEIN, SERUM 9.3 g/dL (6.4-8.2)
[2022-08-03 22:12] LABS: BASOPHILS # (AUTO) 0.1 K/uL (0.0-0.2); BASOPHILS % (AUTO) 2.1 % (0.0-2.0); HEMATOCRIT 29 % (39-51); HEMOGLOBIN 9.5 g/dL (13.5-17.5); LYMPHOCYTES # (AUTO) 1.9 K/uL (0.8-4.8); LYMPHOCYTES % (AUTO) 37.1 % (20.0-44.0); MEAN CORPUSCULAR HGB CONC 33 g/dl (31.0-36.0); MEAN CORPUSCULAR VOLUME 83 fL (80-96); MONOCYTES # (AUTO) 0.6 K/uL (0.1-1.30); NEUTROPHILS # (AUTO) 2.3 K/uL (1.8-8.9); NEUTROPHILS % (AUTO) 43.8 % (43.0-81.0); PLATELET COUNT (AUTO) 284 K/uL (150-450); WHITE BLOOD COUNT (AUTO) 5.2 K/uL (4.3-11.0)
[2022-08-03 22:46] LABS: BILIRUBIN,URINE NEGATIVE (NEGATIVE); COLOR,URINE YELLOW (YELLOW); LEUKOCYTE ESTERASE ,URINE NEGATIVE (NEGATIVE); NITRITE, URINE NEGATIVE (NEGATIVE); PROTEIN,URINE TRACE mg/dl (NEGATIVE); UGLUCOSE NEGATIVE (NEGATIVE); UROBILINOGEN,URINE 0.2 EU/dL (0.2)
[2022-08-03] MEDS ORDERED: HYDROCODONE/APAP 5/325MG TABLET ONE (22:55)
[2022-08-03] MEDS ORDERED: HYDROCODONE/APAP 5/325MG TABLET PO ONE (23:00)
--- NOTE | 2022-08-03 23:02 | NUR ---
Patient discharged to home in stable condition. Written and verbal after care instructions given. Patient verbalizes understanding of instruction.
[2022-08-04 00:25] VITALS: BP 138/79
[2022-08-04 07:58] LABS: BACTERIA,URINE None seen /HPF (None Seen); SQUAMOUS EPITHELIAL CELL,UR None Seen /HPF (None Seen); WBC,URINE NONE SEEN /HPF (0-3)
== END 2022-08-03 23:07 | disposition home or self-care (01) ==
LOC: ER 20:46
DX: R10.84 Generalized abdominal pain (principal); Z59.00 Homelessness unspecified; Z79.899 Other long term (current) drug therapy
CPT/HCPCS: 36415; 71045-TC; 80048-TC; 80076-TC; 81001; 83690-TC; 85025-TC

== ENCOUNTER 2022-08-23 23:09 | Emergency (ER) | payer OTHER ==
[~2022-08-23] VITALS: Ht 175.3 cm; Wt 72.6 kg
[2022-08-23] MEDS ORDERED: CLOT15CR27 TP (23:48)
[2022-08-23] MEDS ORDERED: IBUP-1957 PO (23:48)
[2022-08-23] MEDS ORDERED: HYDROCODONE/APAP 5/325MG TABLET ONE (23:51)
[2022-08-23] MEDS ORDERED: IBUPROFEN 600 MG TABLET ONE (23:52)
--- NOTE | 2022-08-23 23:55 | NUR ---
Patient discharged to home in stable condition. Written and verbal after care instructions given. Patient verbalizes understanding of instruction.
[2022-08-23 23:57] VITALS: BP 132/78
[2022-08-24] MEDS ORDERED: IBUPROFEN 600 MG TABLET PO ONE
[2022-08-24] MEDS ORDERED: HYDROCODONE/APAP 5/325MG TABLET PO ONE
== END 2022-08-23 23:58 | disposition home or self-care (01) ==
LOC: ER 23:10
DX: B35.3 Tinea pedis (principal); J45.909 Unspecified asthma, uncomplicated; E11.9 Type 2 diabetes mellitus without complications; Z59.00 Homelessness unspecified; Z79.899 Other long term (current) drug therapy